=== PATIENT | male | born 1965 | race Asian ===

== ENCOUNTER 2016-11-03 19:10 | Emergency (ER) | payer SELFPAY ==
[~2016-11-03] VITALS: Ht 172.7 cm; Wt 81.8 kg
[2016-11-03] MEDS ORDERED: ARIP10TA8 PO (20:14)
[2016-11-03] MEDS ORDERED: ESCI10TA PO (20:14)
[2016-11-03] MEDS ORDERED: CLON1 PO (20:14)
[2016-11-03 20:22] LABS: GLUCOSE,POINT OF CARE 220 MG/DL (70-110)
[2016-11-03 20:35] LABS: EOSINOPHILS % (AUTO) 0.8 % (1.0-6.0); HEMATOCRIT 45.1 % (41-53); HEMOGLOBIN 15.5 g/dL (13.5-17.5); LYMPHOCYTES % (AUTO) 14.9 % (22.0-44.0); MEAN CORPUSCULAR HEMOGLOBIN 30.8 pg (26.0-34.0); MEAN CORPUSCULAR HGB CONC 34.4 G/dL (31.0-37.0); MEAN CORPUSCULAR VOLUME 89 fL (80-100); MONOCYTES # (AUTO) 0.5 K/uL (0.1-1.0); MONOCYTES % (AUTO) 3.9 % (2.0-9.0); NEUTROPHILS # (AUTO) 10.9 K/uL (1.8-7.7); NEUTROPHILS % (AUTO) 80.4 % (40.0-70.0); PLATELET COUNT (AUTO) 238 K/uL (150-450); RED BLOOD CELL COUNT(AUTO) 5.04 MIL/uL (4.50-5.90); RED CELL DISTRIBUTION WIDTH 13.2 % (11.5-14.5); WHITE BLOOD COUNT (AUTO) 13.5 K/uL (4.5-11.0)
[2016-11-03 20:39] LABS: ANION GAP 9 mmol/L (8-16); CALCIUM, TOTAL 9.5 mg/dL (8.8-10.5); CARBON DIOXIDE 30 mmol/L (22-29); CHLORIDE 99 mmol/L (98-107); CREATININE 1.17 mg/dL (0.60-1.30); GLOMERULAR FILTR. RATE CALC > 60 mL/min (>60); POTASSIUM 3.5 mmol/L (3.5-5.1); SODIUM SERUM 138 mmol/L (136-145); UREA NITROGEN, BLOOD 13 mg/dL (7-18)
[2016-11-03 20:45] LABS: ALANINE AMINOTRANSFERASE 50 U/L (12-78); ALBUMIN 4.4 g/dL (3.4-5.0); ASPARTATE AMINOTRANSFERASE 28 U/L (15-37); BILIRUBIN,TOTAL 0.4 mg/dL (0.1-1.0)
[2016-11-03 21:23] VITALS: BP 137/90
== END 2016-11-03 21:26 | disposition home or self-care (01) ==
LOC: EMS 19:12
DX: F32.9 Major depressive disorder, single episode, unspecified (principal); E11.9 Type 2 diabetes mellitus without complications; Z88.5 Allergy status to narcotic agent
CPT/HCPCS: 36415; 80053; 80307; 82962; 85025; 99285; G0480